=== PATIENT | male | born 1980 | race Hispanic/Latino ===

== ENCOUNTER 2018-12-25 01:52 | Emergency (ER) | payer OTHER ==
[2018-12-25] MEDS ORDERED: CEFTRIAXONE SODIUM 500 MG VIAL ONE (02:18)
[2018-12-25] MEDS ORDERED: METRONIDAZOLE 500 MG TABLET ONE (02:18)
[2018-12-25] MEDS ORDERED: ONDANSETRON ODT 4 MG TAB ONE (02:19)
[2018-12-25] MEDS ORDERED: AZITHROMYCIN 250 MG TABLET PO ONE (02:19)
[2018-12-25 02:28] LABS: APPEARANCE,URINE Clear (CLEAR); BILIRUBIN,URINE Negative (NEGATIVE); COLOR,URINE Yellow (YELLOW); GLUCOSE, URINE (UA) Negative (NEGATIVE); KETONES,URINE Negative (NEGATIVE); LEUKOCYTE ESTERASE ,URINE Trace (NEGATIVE); NITRATE,URINE Negative (NEGATIVE); OCCULT BLOOD,URINE Negative (NEGATIVE); PROTEIN,URINE Negative (NEGATIVE)
[2018-12-25 02:44] LABS: BACTERIA,URINE None Seen /HPF (None Seen); MUCUS,URINE Few LPF (None Seen); RBC,URINE None Seen /HPF (0-1); SQUAMOUS EPITHELIAL CELL,UR Few /HPF (0-2); WBC,URINE None Seen /HPF (0-1)
== END 2018-12-25 02:59 | disposition home or self-care (01) ==
LOC: EDH 01:52
DX: Z20.2 Contact with and (suspected) exposure to infections with a predominantly sexual mode of transmission (principal)
CPT/HCPCS: 81001; 87486; 87797; 96372; 99284; J0696